=== PATIENT | male | born 1980 | race Caucasian/White ===

== ENCOUNTER 2017-06-09 08:37 | Day surgery (SDC) | payer BC ==
--- NOTE | 2017-06-02 17:46 | HP ---
PREOPERATIVE HISTORY AND PHYSICAL: DATE OF SURGERY/ADMISSION: 06/09/17 [facility] DATE OF OFFICE VISIT/ENCOUNTER: 05/28/17 ATTENDING SURGEON: Tangela Dean MD * (DICTATED BY ELIECER IBANEZ) PROCEDURE: Left wrist and elbow ulnar nerve decompression. CHIEF COMPLAINT: Bilateral hand numbness and tingling in the ulnar nerve distribution. HISTORY OF PRESENT ILLNESS: This is a 37-year-old male, who complains of numbness and tingling in his ulnar 2 fingers progressively worsening over the past 2 years in both hands, left is worse than right. He has trouble gripping and repetitive work causes fatigue and numbness. He had a nerve conduction study done, which was negative for ulnar neuropathy, but clinically he presents with obvious ulnar neuropathy. The patient has chronic back pain and takes oxycodone 30 mg as prescribed by Dr. Flores and also takes ibuprofen for pain. Neither of these medications alleviate the symptoms in his hands. He is interested in pursuing surgical intervention at this time and has consented to proceed with a left wrist and ulnar nerve decompression. He will likely follow at sometime in the future with a right ulnar nerve decompression. PAST MEDICAL HISTORY: Chronic back pain. PAST SURGICAL HISTORY: 1. Right wrist surgery. 2. Right ear surgery. CURRENT MEDICATIONS: 1. Diazepam 10 mg daily. 2. Ibuprofen 800 mg t.i.d. p.r.n. 3. Oxycodone HCl 30 mg. ALLERGIES: No known drug allergies. FAMILY MEDICAL HISTORY: Unremarkable. 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 He is a smoker. He smokes approximately a pack per day and has done so for the past 12 years. He denies recreational drug use and does not drink alcohol. REVIEW OF SYSTEMS: General: Negative for fevers, chills, or night sweats. No known anesthesia problems. HEENT: Negative for headache, lightheadedness, or syncopal episodes. Integumentary: Negative for abrasions, lesions, or open wounds. Cardiothoracic: Negative for hypertension, chest pain, palpitations, or edema. Pulmonary: Negative for shortness of breath with exertion, chronic cough, or COPD. GI: Negative for nausea, vomiting, diarrhea, constipation, or GERD. : Negative for nocturia, urinary frequency, urgency, history of UTIs, or kidney problems. Musculoskeletal: Positive for current complaint and positive for chronic back pain. Negative for history of fractures. Neurologic : Positive for bilateral dysesthesias in ulnar nerve distributions. Negative for history of seizure, stroke, or epilepsy. Endocrine: Negative for diabetes and thyroid issues. Hematologic: Negative for easy bruising, anemia, excessive bleeding, or history of DVT. Infectious Disease: Negative for history of MRSA, hepatitis C, or HIV. PHYSICAL EXAMINATION GENERAL: Well-developed, well-nourished, 37-year-old male, in no acute distress. VITAL SIGNS: Height 5 feet 11 inches, weight 176 pounds, blood pressure 118/82. HEENT: Normocephalic, atraumatic. Pupils are equal, round, and reactive to light and accommodation. Extraocular movements are intact. Throat is clear. NECK: Supple. No palpable lymph nodes. PULMONARY: Lungs are clear to auscultation bilaterally. No wheezes, rales, or rhonchi. CARDIOVASCULAR: Regular rate and rhythm. S1 and S2. No murmurs, rubs, or gallops. No edema. ABDOMEN: Positive bowel sounds, soft, nontender. NEUROLOGICAL: Alert and oriented x3. Cranial nerves II through XII are intact. Sensation is intact to light touch. MUSCULOSKELETAL: On exam of his left upper extremity, he has a mildly positive Tinel's sign at the ulnar nerve distal to the cubital tunnel. He also has a positive Tinel's sign at the ulnar nerve at the wrist. Good range of motion of the left elbow. Weakness with finger abduction, but no interosseous wasting. Some mild hypothenar wasting left hand. IMAGING STUDIES: EMG nerve conduction study, normal study. IMPRESSION: Left ulnar neuropathy at the elbow and the wrist. PLAN: The patient is scheduled to undergo a left wrist and elbow ulnar nerve decompression with Dr. Dean on 06/09/17. He will return to the office in 10 to 14 days postop for followup for suture/staple removal. He has pain medication at home. Oxycodone 30 mg as prescribed by Dr. Flores for back pain and he will plan on using this for postoperative pain management along with over -the-counter medications. ELIECER IBANEZ [id number]/[facility] #: [id number] MTDD
[~2017-06-09 08:37] MED LIST: Buffered Lidocaine 0.9% SYRIN* 5 ML/SYR SYRINGE INTRADERM ONE; DiMENhydriNATE IV* 50 MG/ML VIAL IV PUSH PRN; Famotidine IV* 10 MG/ML 2 ML (20 mg) IV ONE; Morphine INJ* 2 MG/ML 1 ML CARPUJECT IV PRN; PROCHLORPERAZINE INJ 5 MG/ML 2 ML VIAL IV PRN; Scopolamine 1.5 mg* PATCH TRANSDERM PRN; fentaNYL* 50 MCG/ML 2 ML VIAL (100 MCG VIAL) IV PRN; oxyCODONE/Acetamin 5/325 MG* TAB PO PRN
[2017-06-09] MEDS ORDERED: ceFAZolin 2 GM PREMIX (*) 2 GM/50 ML BAG IVPB ONE (08:55)
[2017-06-09] MEDS ORDERED: Midazolam* 1 MG/ML 5 ML VIAL (5 MG) ONE (09:05)
[2017-06-09] MEDS ORDERED: fentaNYL* 50 MCG/ML 2 ML VIAL (100 MCG VIAL) ONE (09:05)
[2017-06-09] MEDS ORDERED: KETAMINE HCL* 50 MG/ML 10 ML VIAL ONE (09:05)
[2017-06-09] MEDS ORDERED: Famotidine IV* 10 MG/ML 2 ML (20 mg) ONE (09:20)
[2017-06-09] MEDS ORDERED: Lidocaine 1% INJ* 10 MG/ML 30 ML SDV ONE (09:40)
[2017-06-09] MEDS ORDERED: Propofol* 10 MG/ML 20 ML BTL IV PUSH ONE (10:04)
[2017-06-09] MEDS ORDERED: Lidocaine 2% PF * 5 ML VIAL ONE (10:04)
[2017-06-09] MEDS ORDERED: Bupivacaine 0.5% SDV PF* 30 ML VIAL ONE (10:06)
[2017-06-09 12:19] VITALS: BP 124/82
--- NOTE | 2017-06-10 01:50 | OP ---
DATE OF OPERATION: 06/09/17 - [facility] DATE OF : 82 SURGEON: Tangela Dean MD [employer] OPERATOR: ELIECER Garcia ANESTHESIOLOGIST: Bill Craig MD ANESTHESIA: Local MAC. PRE-OP DIAGNOSIS: Ulnar nerve compression of the wrist and elbow on the left. POST-OP DIAGNOSIS: Ulnar nerve compression of the wrist and elbow on the left. OPERATIVE PROCEDURE: Ulnar nerve decompression, left wrist and left elbow. ESTIMATED BLOOD LOSS: Zero. TOURNIQUET TIME: Total of 30 minutes. INDICATION FOR PROCEDURE: Venkat is a 37-year-old male who has ulnar nerve symptoms of numbness and tingling in the ulnar 2 fingers of his left hand as well as weakness. Nerve conduction studies shows ulnar nerve compression of the wrist and elbow. He has a positive Tinel's sign at the wrist and elbow. He presents for ulnar nerve decompression of the wrist and elbow on the left. DESCRIPTION OF PROCEDURE: The patient was brought to the operating room, was given a sedation anesthetic and a local infiltration of total of 30 cc of 1% plain lidocaine at the elbow and the wrist. The skin of his left upper extremity was prepped and draped in the usual sterile fashion. The hand and forearm were exsanguinated. The tourniquet elevated to 250 mmHg. A zigzag incision was made across the wrist creases on the ulnar aspect in the volar side of the wrist. The ulnar nerve was located proximally just ulnar and deep to the flexor carpi ulnaris tendon. It was carefully traced out through Guyon' s canal and completely released into the mid aspect of the palm. The wound was irrigated and the skin edges reapproximated with 4-0 nylon suture. Next, a curvilinear incision was made centered between the medial epicondyle and the tip of the olecranon process, dissected bluntly through the subcutaneous tissue until the ulnar nerve was located proximally. There was a significantly tight band of the medial intermuscular septum and this was divided. There was an anconeus epitrochlearis muscle across the cubital tunnel and this was divided. The sensory branch of the medial antebrachial cutaneous nerve was preserved. The FCU fascia deep and superficial was divided as was the FCU muscle completely releasing the nerve. The area of most compression was underneath the anconeus epitrochlearis muscle. The wound was irrigated. Subcutaneous tissue was closed with 2-0 Polysorb and the skin with skin stacey. The wounds were dressed with Xeroform, 4x4, Webril and an Donato wrap. The patient tolerated the procedure well, was brought to the recovery room in good condition. [id number]/[facility] #: [id number] MTDD
[2017-06-12] MEDS ORDERED: Scopolamine PATCH Remove* 1 NOTE MISC PATCH OFF ONE (05:50)
== END 2017-06-09 11:58 | disposition home or self-care (01) ==
LOC: OREAST 08:37
PROVIDERS: ATTEND Orthopaedic Surgery
DX: G56.22 Lesion of ulnar nerve, left upper limb (principal); F17.210 Nicotine dependence, cigarettes, uncomplicated; F41.9 Anxiety disorder, unspecified
CPT/HCPCS: J0690; J2001; J2250; J2704; J3010

== ENCOUNTER 2017-07-31 09:01 | Day surgery (SDC) | payer BC ==
--- NOTE | 2017-07-29 18:06 | HP ---
AMENDED REPORT NOW INCLUDES COSIGNER DESIGNATION - ESIGNED BEFORE ADJUSTMENT PREOPERATIVE HISTORY AND PHYSICAL: DATE OF ADMISSION/SURGERY: 07/31/17 DATE OF OFFICE VISIT: 07/08/17 ATTENDING SURGEON: Tangela Dean MD * (DICTATED BY ELIECER IBANEZ) PROCEDURE: Right elbow ulnar nerve decompression. HISTORY OF PRESENT ILLNESS: This is a 37-year-old male, who complains of numbness and tingling in the ulnar nerve distribution of his right hand. It is progressively worsening over the past 2 years. He has trouble gripping and repetitive work causes fatigue and numbness. He has had a nerve conduction study done in the past, which was negative for ulnar neuropathy, but clinically he presents with obvious ulnar neuropathy. The patient has chronic back pain and takes oxycodone 30 mg as prescribed by Dr. Flores and also takes ibuprofen for pain. Neither of these medications alleviates the symptoms in his hands. He recently underwent a left wrist and ulnar nerve decompression with Dr. Dean and has done well with that. He is interested in pursuing surgical intervention at this time for his right ulnar nerve. PAST MEDICAL HISTORY: Chronic back pain. PAST SURGICAL HISTORY: 1. Left elbow and wrist ulnar nerve decompression. 2. Right wrist surgery. 3. Right ear surgery. CURRENT MEDICATIONS: 1. Diazepam 10 mg daily. 2. Ibuprofen 800 mg t.i.d. p.r.n. 3. Oxycodone HCl 30 mg. ALLERGIES: No known drug allergies. FAMILY MEDICAL HISTORY: Unremarkable. 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 He is a smoker and smokes approximately a pack per day and has done so for the past 12 years. He denies recreational drug use and does not drink alcohol. REVIEW OF SYSTEMS: General: Negative for fevers, chills, or night sweats. No known anesthesia problems. HEENT: Negative for headache, lightheadedness, or syncopal episodes. Integumentary: Negative for abrasions, lesions, or open wounds. Cardiothoracic: Negative for hypertension, chest pain, palpitations, or edema. Pulmonary: Negative for shortness of breath with exertion, chronic cough, COPD. GI: Negative for nausea, vomiting, diarrhea, constipation, or GERD. : Negative for nocturia, urinary frequency, urgency, history of UTIs, or kidney problems. Musculoskeletal: Positive for current complaint. Positive for chronic back pain. Negative for history of fractures. Neurologic : Positive for dysesthesia in his right ulnar nerve distribution. Negative for history of seizure, stroke, or epilepsy. Endocrine: Negative for diabetes or thyroid issues. Hematologic: Negative for easy bruising, anemia, excessive bleeding, or history of DVT. Infectious Disease: Negative for history of MRSA , hepatitis C, or HIV. PHYSICAL EXAMINATION GENERAL: Well-developed, well-nourished, 37-year-old male, in no acute distress. VITAL SIGNS: Height 5 feet 11 inches, weight 176 pounds, blood pressure 118/82 , and pulse rate 84. HEENT: Normocephalic, atraumatic. Pupils are equal, round, and reactive to light and accommodation. Extraocular movements are intact. Throat is clear. NECK: Supple. No palpable lymph nodes. PULMONARY: Lungs are clear to auscultation bilaterally. No wheezes, rales, or rhonchi. CARDIOVASCULAR: Regular rate and rhythm. S1, S2. No murmurs, rubs, or gallops. No edema. ABDOMEN: Positive bowel sounds, soft, nontender. NEUROLOGICAL: Alert and oriented x3. Cranial nerves II through XII are intact. Sensation is intact to light touch. MUSCULOSKELETAL: On exam of his right upper extremity, he has mildly positive Tinel's sign at the ulnar nerve at the elbow. He has good range of motion of the right elbow. He has weakness with thumb abduction, but no interosseous wasting. IMAGING STUDIES: EMG/nerve conduction study, normal study. IMPRESSION: Right ulnar neuropathy at the elbow. PLAN: The patient is scheduled to undergo a right elbow ulnar nerve decompression with Dr. Dean on 07/31/17. He will return to the office 10 days postop for followup and staple removal. He has pain medication at home, oxycodone 30 mg, as prescribed by Dr. Flores for back pain. He will plan on using that for postoperative pain management along with [id number] medications. ELIECER IBANEZ [id number]/[facility] #: [id number] JUAN
[~2017-07-31 09:01] MED LIST changes: -DiMENhydriNATE IV* 50 MG/ML VIAL IV PUSH PRN; -Famotidine IV* 10 MG/ML 2 ML (20 mg) IV ONE; +Lidocaine 1% INJ* 10 MG/ML 30 ML SDV ONE; -Morphine INJ* 2 MG/ML 1 ML CARPUJECT IV PRN; -PROCHLORPERAZINE INJ 5 MG/ML 2 ML VIAL IV PRN; -Scopolamine 1.5 mg* PATCH TRANSDERM PRN; -fentaNYL* 50 MCG/ML 2 ML VIAL (100 MCG VIAL) IV PRN; -oxyCODONE/Acetamin 5/325 MG* TAB PO PRN
[2017-07-31] MEDS ORDERED: ceFAZolin 2 GM PREMIX (*) 2 GM/50 ML BAG IVPB ONE (09:32)
[2017-07-31] MEDS ORDERED: HYDROcodone/ACETAMIN 5-325 MG* 1 TAB PO PRN (09:34)
[2017-07-31] MEDS ORDERED: Naloxone* 0.4 MG/ML 1 ML VIAL IV PRN (09:34)
[2017-07-31] MEDS ORDERED: Acetaminophen TAB* 325 MG PO PRN (09:34)
[2017-07-31] MEDS ORDERED: PROCHLORPERAZINE INJ 5 MG/ML 2 ML VIAL IV PRN (09:34)
[2017-07-31] MEDS ORDERED: DiMENhydriNATE IV* 50 MG/ML VIAL IV PUSH PRN (09:34)
[2017-07-31] MEDS ORDERED: Ondansetron INJ* 2 MG/ML VIAL IV PRN (09:34)
[2017-07-31] MEDS ORDERED: Lidocaine 2% PF * 5 ML VIAL ONE (09:52)
[2017-07-31] MEDS ORDERED: Ketorolac INJ* 30 MG/ML 1 ML VIAL ONE (09:52)
[2017-07-31] MEDS ORDERED: Midazolam* 1 MG/ML 2 ML VIAL (2 MG) ONE ×2 (09:52)
[2017-07-31] MEDS ORDERED: fentaNYL* 50 MCG/ML 2 ML VIAL (100 MCG VIAL) ONE (09:52)
[2017-07-31] MEDS ORDERED: Propofol* 10 MG/ML 20 ML BTL IV PUSH ONE (09:52)
[2017-07-31] MEDS ORDERED: KETAMINE HCL* 50 MG/ML 10 ML VIAL ONE (09:52)
[2017-07-31 11:35] VITALS: BP 132/95
--- NOTE | 2017-08-01 04:31 | OP ---
DATE OF OPERATION: 07/31/17 - [facility] DATE OF : 82 SURGEON: Tangela Dean MD CORE JAVA ENGINEER: ELIECER Garcia ANESTHESIA: Local MAC. PRE-OP DIAGNOSIS: Ulnar nerve compression of the right elbow and wrist. POST-OP DIAGNOSIS: Ulnar nerve compression of the right elbow and wrist. OPERATIVE PROCEDURE: Ulnar nerve decompression of the right elbow and wrist. ESTIMATED BLOOD LOSS: Zero. TOURNIQUET TIME: About 35 minutes. INDICATIONS FOR PROCEDURE: Venkat is a 37-year-old male with ulnar nerve symptoms on both upper extremities. He has had an ulnar nerve decompression of the wrist and elbow on the left and did well with that. He presents with the same on the right. DESCRIPTION OF PROCEDURE: The patient was brought to the operating room, was given a sedation anesthetic and a local infiltration of total of 25 cc of 1% plain lidocaine at the right elbow and the palm of the right hand. The skin of his right hand and forearm and upper extremity was prepped and draped in the usual sterile fashion. The upper extremity was exsanguinated and the tourniquet elevated to 250 mmHg. A curvilinear incision was made centered between the medial epicondyle and at tip of the olecranon process. We dissected bluntly through the subcutaneous tissue down to the ulnar nerve and Guyon's canal. There was an anconeus epitrochlearis muscle and this was divided. The nerve was carefully dissected out proximally and distally and branch of the medial antebrachial cutaneous nerve was preserved. The medial intermuscular septum was incised and the FCU fascia was incised longitudinally, completely releasing the nerve. The wound was irrigated and subcutaneous tissue closed with 2-0 Polysorb and the skin was closed with skin stacey. Next , a zig-zag incision was made across the wrist creases overlying in the ulnar nerve in the wrist and palm. We carefully dissected bluntly down to the ulnar nerve proximal to the wrist and then traced it carefully through Guyon's canal completely releasing the nerve up into the mid aspect of the palm. The nerve was in good condition. The wound was irrigated and the skin edges reapproximated with 4-0 nylon suture. The wounds were dressed with Xeroform, 4x4, Webril, and an Donato wrap. The patient tolerated the procedure well, was brought to the recovery room in good condition. [id number]/[facility] #: [id number] JUAN
== END 2017-07-31 11:40 | disposition home or self-care (01) ==
LOC: OREAST 09:01
PROVIDERS: ATTEND Orthopaedic Surgery
DX: G56.21 Lesion of ulnar nerve, right upper limb (principal); F17.210 Nicotine dependence, cigarettes, uncomplicated
CPT/HCPCS: J0690; J1885; J2250; J2704; J3010

== ENCOUNTER 2017-12-14 09:39 | Emergency (ER) | payer BC ==
[2017-12-14 10:03] VITALS: BP 122/84
--- NOTE | 2017-12-14 10:07 | UC ---
Back Pain HPI - HPI Summary HPI Summary: 37 yo male presents with low back pain. He tells me that for years he has had chronic low back pain. Over the last 2 weeks his pain has been increasing. Over the last 2-3 days it is painful to stand up straight and he has noticed increased numbness and pain radiating down his right leg. He takes oxycodone and ibuprofen for his pain - recently the oxycodone is "not touching the pain". He thought he was scheduled for an MRI soon, but called his PCP today and they told him that they are just now starting the prior auth for his MRI. He told them he cannot wait that long to find out what is going on so they recommended going to the ER or UC. Denies loss of bowel/bladder control, abdominal pain, n/v , dysuria, flank pain, hematuria. - History of Current Complaint Chief Complaint: UCBackPain Stated Complaint: BACK PAIN Hx Obtained From: Patient Onset/Duration: Gradual Onset Timing: Constant Severity Initially: Moderate Severity Currently: Severe Pain Intensity: 8 Pain Scale Used: 0-10 Numeric Character: Aching, Spasmodic, Stiffness Aggravating Factor(s): Movement - Allergies/Home Medications Allergies/Adverse Reactions: Allergies Allergy/AdvReac Type Severity Reaction Status Date / Time No Known Allergies Allergy Verified 12/14/17 09:58 PMH/Surg Hx/FS Hx/Imm Hx - Additional Past Medical History Additional PMH: Chronic low back pain Anxiety Previously Healthy: Yes - Surgical History Surgical History: Yes Surgery Procedure, Year, and Place: RIGHT WRIST- A CHILD. [facility] EAR[facility]. [place] [facility] [place] Family History Known Family History: Positive: None - Social History Occupation: Employed Full-time Lives: With Family Alcohol Use: None Substance Use Type: Prescribed Smoking Status (MU): Heavy Every Day Tobacco Smoker Amount Used/How Often: 1-2 PPD X 10 YEARS Have You Smoked in the Last Year: Yes Household Exposure Type: Cigarettes Review of Systems Constitutional: Negative Skin: Negative Respiratory: Negative Cardiovascular: Negative Genitourinary: Negative Neurovascular: Negative Musculoskeletal: Other: - LBP Neurological: Negative Psychological: Negative All Other Systems Reviewed And Are Negative: Yes Physical Exam - Summary Physical Exam Summary: GENERAL: NAD. WDWN. No pain distress. SKIN: No rashes, sores, lesions, or open wounds. NECK: Supple. FROM. Nontender. No lymphadenopathy. CHEST: CTAB. No r/r/w. No accessory muscle use. Breathing comfortably and in no distress. CV: RRR. Without m/r/g. Pulses intact. Brisk cap refill. MSK: TTP over right lumbar paraspinal muscles. Pain with flexion and extension of spine. Positive SLR b/l. Strength symmetric B/L LEs including dorsiflexion and plantar flexion. FROM B/L LEs. No edema. NEURO: Alert. CN II-XII grossly intact. Sensations intact B/L LEs L3-S1. Present , but diminished patellar reflex R>L PSYCH: Age appropriate behavior. Triage Information Reviewed: Yes Vital Signs: Initial Vital Signs Temp 98.2 F 12/14/17 09:59 Pulse 92 12/14/17 09:59 Resp 20 12/14/17 09:59 BP 122/84 12/14/17 09:59 Pulse Ox 98 12/14/17 09:59 Back Pain Course/Dx - Course Course Of Treatment: Toradol 30mg IM given in clinic. Pt was offered flexeril, but says these make him too sleepy and he cannot function well. I advised him to continue taking his pain medication and f/u with his PCP regarding MRI. If his symptoms worsen or if he develops new symptoms - go to ED - Differential Dx/Diagnosis Provider Diagnoses: Low back pain with radiculopathy Discharge - Sign-Out/Discharge Documenting (check all that apply): Discharge/Admit/Transfer - Discharge Plan Condition: Stable Disposition: HOME Patient Education Materials: Back Pain (ED) Referrals: Lilia Arndt NP [Primary Care Provider] - Additional Instructions: If you develop a fever, shortness of breath, chest pain, new or worsening symptoms - please call your PCP or go to the ED. 1) If your pain continues or worsens - or if you develop groin numbness/ tingling or loss of bladder/bowel control...please go to the ER - Billing Disposition and Condition Condition: STABLE Disposition: HOME
[2017-12-14] MEDS ORDERED: Ketorolac INJ* 30 MG/ML 1 ML VIAL IM ONE (10:18)
== END 2017-12-14 10:39 | disposition home or self-care (01) ==
LOC: UCEAST 09:39
DX: M54.10 Radiculopathy, site unspecified (principal); M54.5 Low back pain; F17.210 Nicotine dependence, cigarettes, uncomplicated
CPT/HCPCS: 90472; 99211; G0463; J1885

== ENCOUNTER 2018-01-08 12:28 | Emergency (ER) | payer BC ==
--- OUTSIDE RECORDS SUMMARY | 2018-01-08 12:33 | XMS REPORT ---
:1980 External Reference #:[id number] Author Organization [employer] Address [address] [place] [address] Phone [phone] Care Team Providers Name Role Phone Lawrence Flores MD Primary Care Physician Unavailable Payers Type Date Identification Numbers Payment Provider Subscriber Commercial Policy Number: [id number] [employer] Brenda Chuy Geovanna PayID: [id number] [address] [address] [place] [address] Problems Date Description Provider Status Onset: 02/20/2017 Lesion of ulnar nerve Ciaran Wade MD Active Social History Type Date Description Comments Lives With Spouse 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 07/06/2017 Vital Signs Date Vital Result Comment 09/07/2017 Height 71 inches 5'11" Heart Rate 81 /min BP Systolic 110 mmHg BP Diastolic 78 mmHg Respiratory Rate 17 /min Body Temperature 97.3 F Pain Level 7 08/10/2017 Height 71 inches 5'11" Weight 176.00 lb BP Systolic 126 mmHg BP Diastolic 88 mmHg Respiratory Rate 17 /min Body Temperature 96.7 F Pain Level 8 BMI (Body Mass Index) 24.5 kg/m2 07/08/2017 Height 71 inches 5'11" Weight 176.00 lb Respiratory Rate 12 /min Body Temperature 98.2 F Pain Level 8 BMI (Body Mass Index) 24.5 kg/m2 06/19/2017 Height 71 inches 5'11" Weight 176.00 lb Heart Rate 84 /min BP Systolic 134 mmHg BP Diastolic 88 mmHg Body Temperature 96.5 F Pain Level 7 BMI (Body Mass Index) 24.5 kg/m2 05/28/2017 Height 71 inches 5'11" Weight 176.00 lb BP Systolic 118 mmHg BP Diastolic 82 mmHg Body Temperature 98.1 F Pain Level 0 BMI (Body Mass Index) 24.5 kg/m2 05/20/2017 Height 71 inches 5'11" Weight 176.00 lb BP Systolic 110 mmHg BP Diastolic 78 mmHg Respiratory Rate 14 /min Body Temperature 98.3 F Pain Level 3 BMI (Body Mass Index) 24.5 kg/m2 02/20/2017 Height 71 inches 5'11" Weight 185.00 lb BP Systolic 138 mmHg BP Diastolic 91 mmHg Respiratory Rate 16 /min Pain Level 1 BMI (Body Mass Index) 25.8 kg/m2 Results Description No Information Procedures Date CPT Code Description Status 07/31/2017 68443 Neuroplasty/Transposition, Ulnar Nerve AT Wrist Completed 07/31/2017 61022 Neuroplasty/Transposition, Ulnar Nerve AT Wrist Completed 07/31/2017 13465 Neuroplasty &/Or Transposition; Ulnar Nerve AT Completed Elbow 07/31/2017 84339 Neuroplasty &/Or Transposition; Ulnar Nerve AT Completed Elbow 06/09/2017 13637 Neuroplasty/Transposition, Ulnar Nerve AT Wrist Completed 06/09/2017 08017 Neuroplasty/Transposition, Ulnar Nerve AT Wrist Completed 06/09/2017 67384 Neuroplasty &/Or Transposition; Ulnar Nerve AT Completed Elbow 06/09/2017 94868 Neuroplasty &/Or Transposition; Ulnar Nerve AT Completed Elbow Encounters Type Date Location Provider CPT E/M Dx Office Visit 05/28/2017 [facility] Tangela Dean 90907 G56.23 8:00a Of [facility] Office Visit 05/20/2017 [facility] Tangela Dean 76407 G56.23 10:45a Of [facility] S61.012A Office Visit 02/20/2017 10:45a [facility] [place] [address] G56.23 C.M.A. Office Visit 10/29/2006 1:00p [facility] Humberto Danielle, 8[address] 722.10 Of [facility] Plan of Care 01/04/2018 - Parrish Smith M.D.M51.26 Other intervertebral disc displacement, lumbar regionFollow up:Patient to call if he would like to proceed with lumbar discectomy L4-5 right
[2018-01-08 12:48] VITALS: BP 118/95
[2018-01-08] MEDS ORDERED: Ketorolac INJ* 60 MG/2 ML VIAL IM ONE (13:02)
[2018-01-08] MEDS ORDERED: HYDROcodone/ACETAMIN 5-325 MG* 1 TAB PO ONE (13:02)
[2018-01-08] MEDS ORDERED: Tetan/Diph/Pertus SYR(Tdap)* 0.5 ML SYR(BOOSTRIX) use SYR IM ONE (13:02)
[2018-01-08] MEDS ORDERED: Silver Sulfadiazine 1%* 20 GM TOPICAL ONE ×2 (13:54→14:12)
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
== END 2018-01-08 14:29 | disposition home or self-care (01) ==
LOC: UCEAST 12:28
DX: T22.212A Burn of second degree of left forearm, initial encounter (principal); T23.232A Burn of second degree of multiple left fingers (nail), not including thumb, initial encounter; T31.0 Burns involving less than 10% of body surface; X08.8XXA Exposure to other specified smoke, fire and flames, initial encounter; Y93.89 Activity, other specified; Y92.9 Unspecified place or not applicable; Z23 Encounter for immunization; F17.210 Nicotine dependence, cigarettes, uncomplicated
CPT/HCPCS: 16020; 90715; 99212; A9270-GY; G0463; J1885